=== PATIENT | female | born 1960 | race Two or more races ===

== ENCOUNTER 2021-11-15 13:33 | Outpatient (REF) | payer MEDICARE, SELFPAY ==
--- NOTE | ~2021-11-15 | MM_ITS ---
EXAMINATION: BONE DENSITOMETRY CLINICAL INDICATION: Osteoporosis. COMPARISON: None (current study represents initial baseline exam). TECHNIQUE: Using a [employer] DXA System (software version: 13.1) manufactured by [employer], dual-energy x-ray absorptiometry was performed of the lumbar spine and left hip. The images are of good technical quality. Summary results are attached. FINDINGS: AP SPINE L1-L4: BMD 0.894 g/cm2, Z-score -1.0, T-score -2.4, osteopenia. LEFT FEMUR, NECK: BMD 0.816 g/cm2, Z-score -0.2, T-score -1.6, osteopenia. LEFT FEMUR, TOTAL: BMD 0.793 g/cm2, Z-score -0.6, T-score -1.7, osteopenia. IDENTIFIED RISK FACTORS: Osteoporosis, menopause. HISTORY OF FRACTURE: None listed. MEDICATIONS: Calcium supplements or multivitamin, vitamin D. MM/XR DEXA axial skeleton IMPRESSION: 1. DIAGNOSIS: Osteopenia based on the lowest T-score value of -2.4 in the lumbar spine applying World Health Organization criteria. 2. 10-YEAR FRACTURE RISK PREDICTION, FRAX: Major osteoporotic fracture (clinical spine, forearm, hip or shoulder) 5.0%. Hip fracture 0.5%. 3. Treatment Recommendations: NOF guidelines recommend consideration for treatment in postmenopausal women and men age 50 and older presenting with the following: -A hip or vertebral (clinical or morphometric) fracture. -T-score less than or equal to -2.5 at the femoral neck or spine after appropriate evaluation to exclude secondary causes. -Low bone mass at the hip or spine and a 10-year fracture probability by FRAX of greater than or equal to 3% for hip fracture or greater than or equal to 20% for major osteoporotic fracture based on the [place] adapted WHO algorithm. 4. Other Recommendations: All treatment decisions require clinical judgment and consideration of individual patient factors, including patient preferences, comorbidities, previous drug use, risk factors not captured in the FRAX model (e.g. frailty, falls, vitamin D deficiency, increased bone turnover, interval significant decline in bone density) and possible under or overestimation of fracture risk by FRAX. Additional medical evaluation for secondary cause of low bone mineral density may be appropriate. FUTURE SCAN RECOMMENDATION: People with diagnosed cases of osteoporosis or at high risk for fracture should have regular bone mineral density tests. For patients eligible for Medicare, routine testing is allowed once every 2 years. The testing frequency can be increased to one year for patients who have rapidly progressing disease, those who are receiving or discontinuing medical therapy to restore bone mass, or have additional risk factors.
== END 2021-11-15 13:34 | disposition home or self-care (01) ==
LOC: HO.MAMMO 13:33
PROVIDERS: PCP Internal Medicine; Visit Provider Internal Medicine
DX: Z13.820 Encounter for screening for osteoporosis (principal); M81.0 Age-related osteoporosis without current pathological fracture; Z78.0 Asymptomatic menopausal state
CPT/HCPCS: 77080

== ENCOUNTER 2023-05-22 09:32 | Outpatient (REF) | payer MEDICARE, SELFPAY ==
[2023-05-22 15:24] LABS: Alanine Aminotransferase 20 U/L (0-31); Albumin Level 4.1 g/dL (3.5-5.0); Alkaline Phosphatase 75 U/L (39-117); Aspartate Amino Transferase 20 U/L (5-31); Bilirubin Direct 0.2 mg/dL (0.0-0.5); Bilirubin Total 0.6 mg/dL (0.0-1.0); Cholesterol 198 mg/dL (<200); HDL Cholesterol 70 mg/dL (>40); LDL Cholesterol Calculated 108 mg/dL (<100); Total Protein 7.1 g/dL (6.5-8.0); Triglycerides 102 mg/dL (<150)
[2023-05-22 15:42] LABS: TSH reflex Free T4 2.14 uIU/mL (0.32-4.0)
== END 2023-05-22 09:33 | disposition home or self-care (01) ==
LOC: HO.CHCLDS 09:32
PROVIDERS: Visit Provider Internal Medicine
DX: E03.9 Hypothyroidism, unspecified (principal); E78.2 Mixed hyperlipidemia
CPT/HCPCS: 36415; 80061; 80076; 84443

== ENCOUNTER 2023-11-06 10:03 | Outpatient (REF) | payer MEDICARE, SELFPAY ==
[2023-11-06 14:14] LABS: MANUAL DIFF FLAG NO
[2023-11-06 14:26] LABS: Basophils Percent Auto 0.5 % (0-2); Eosinophils Percent Auto 0.8 % (0-4); Hematocrit 37.6 % (37.0-47.0); Hemoglobin 11.9 g/dl (12.0-16.0); Imm Gran Abs Auto 0.02 X10*3/uL (0.00-0.03); Imm Gran Pct Auto 0.5 % (0.0-0.4); Lymphocytes Absolute Auto 1.6 X10*3/uL (1.2-4.9); Lymphocytes Percent Auto 41.5 % (20-40); Mean Corpuscular HGB Conc 31.6 g/dl (31.0-35.0); Mean Corpuscular Hemoglobin 28.5 pg (27.0-33.0); Mean Corpuscular Volume 90.2 fL (80.0-98.0); Mean Platelet Volume 10.5 fL (9.4-12.3); Monocytes Absolute Auto 0.4 X10*3/uL (0.1-1.2); Neutrophils Absolute Auto 1.7 x10*3/uL (2.0-8.3); Neutrophils Percent Auto 45.7 % (45-73); Platelet Count 220 X10*3/uL (160-400); Red Blood Count 4.17 X10*6/uL (4.20-5.50); Red Cell Distribution Width 13.5 % (11.0-16.0); White Blood Count 3.8 X10*3/uL (4.8-10.8)
[2023-11-06 15:12] LABS: Alanine Aminotransferase 21 U/L (0-31); Albumin Level 4.3 g/dL (3.5-5.0); Alkaline Phosphatase 69 U/L (39-117); Anion Gap 12 (12-20); Aspartate Amino Transferase 19 U/L (5-31); Bilirubin Total 0.6 mg/dL (0.0-1.0); Blood Urea Nitrogen 10 mg/dL (9-16); Calcium 9.8 mg/dL (8.4-10.2); Carbon Dioxide 26 mmol/L (22-29); Chloride 105 mmol/L (96-108); Cholesterol 212 mg/dL (<200); Estimated Glomerular Filt Rate > 60; Glucose Random 92 mg/dL (60-115); HDL Cholesterol 81 mg/dL (>40); LDL Cholesterol Calculated 108 mg/dL (<100); Potassium 4.3 mmol/L (3.3-5.1); Sodium 139 mmol/L (135-145); Total Protein 7.7 g/dL (6.5-8.0); Triglycerides 116 mg/dL (<150)
[2023-11-06 15:26] LABS: TSH reflex Free T4 0.78 uIU/mL (0.32-4.0)
== END 2023-11-06 10:04 | disposition home or self-care (01) ==
LOC: HO.CHCLDS 10:03
PROVIDERS: Visit Provider Internal Medicine
DX: E03.9 Hypothyroidism, unspecified (principal); E78.2 Mixed hyperlipidemia
CPT/HCPCS: 36415; 80053; 80061; 84443; 85025

== ENCOUNTER 2023-11-20 09:39 | Outpatient (REF) | payer MEDICARE, SELFPAY ==
--- NOTE | ~2023-11-20 | MM_ITS ---
EXAMINATION: BONE DENSITOMETRY CLINICAL INDICATION: Menopause. COMPARISON: Baseline BD dated 11/15/2021. TECHNIQUE: Using a [employer] DXA System (software version: 13.1) manufactured by [employer] dual-energy x-ray absorptiometry was performed of the lumbar spine and left hip. The images are of good technical quality. Summary results are attached. FINDINGS: LEFT FEMUR, NECK: Current: BMD 0.778 g/cm2, Z-score -0.5, T-score -1.9, osteopenia. Baseline: BMD 0.816 g/cm2. LEFT FEMUR, TOTAL: Current: BMD 0.790 g/cm2, Z-score -0.6, T-score -1.7, osteopenia, 0.4% decrease from baseline (<5% change is not significant). Baseline: BMD 0.793 g/cm2. AP SPINE L1-L4: Current: BMD 0.920 g/cm2, Z-score -0.7, T-score -2.2, osteopenia, 2.9% increase from baseline (<5% change is not significant). Baseline: BMD 0.894 g/cm2. IDENTIFIED RISK FACTORS: Menopause, height loss, osteoporosis, right oophorectomy. HISTORY OF FRACTURE: None listed. MEDICATIONS: Calcium, vitamin D. MM/XR DEXA axial skeleton IMPRESSION: 1. DIAGNOSIS: Osteopenia based on the lowest T-score value of -2.2 in the lumbar spine applying World Health Organization criteria. 2. 10-YEAR FRACTURE RISK PREDICTION, FRAX: Major osteoporotic fracture (clinical spine, forearm, hip or shoulder) 5.7%. Hip fracture 0.8%. 3. Treatment Recommendations: NOF guidelines recommend consideration for treatment in postmenopausal women and men age 50 and older presenting with the following: -A hip or vertebral (clinical or morphometric) fracture. -T-score less than or equal to -2.5 at the femoral neck or spine after appropriate evaluation to exclude secondary causes. -Low bone mass at the hip or spine and a 10-year fracture probability by FRAX of greater than or equal to 3% for hip fracture or greater than or equal to 20% for major osteoporotic fracture based on the [place] adapted WHO algorithm. 4. Other Recommendations: All treatment decisions require clinical judgment and consideration of individual patient factors, including patient preferences, comorbidities, previous drug use, risk factors not captured in the FRAX model (e.g. frailty, falls, vitamin D deficiency, increased bone turnover, interval significant decline in bone density) and possible under or overestimation of fracture risk by FRAX. Additional medical evaluation for secondary cause of low bone mineral density may be appropriate. FUTURE SCAN RECOMMENDATION: People with diagnosed cases of osteoporosis or at high risk for fracture should have regular bone mineral density tests. For patients eligible for Medicare, routine testing is allowed once every 2 years. The testing frequency can be increased to one year for patients who have rapidly progressing disease, those who are receiving or discontinuing medical therapy to restore bone mass, or have additional risk factors.
== END 2023-11-20 09:40 | disposition home or self-care (01) ==
LOC: HO.MAMMO 09:39
PROVIDERS: PCP Internal Medicine; Visit Provider Internal Medicine
DX: Z13.820 Encounter for screening for osteoporosis (principal); Z78.0 Asymptomatic menopausal state
CPT/HCPCS: 77080

== ENCOUNTER 2024-04-29 15:04 | Outpatient (REF) | payer MEDICARE, SELFPAY ==
[2024-04-29 18:11] LABS: Appearance Urine Clear; Color Urine Yellow; Glucose Urine UA Negative (Negative); Leukocyte Esterase Urine Negative (Negative); Nitrite Urine Negative (Negative); UMIC TRIGGER UACC YES; Urine Blood Small (1+) (Negative); Urine Ketones Negative (Negative); Urine Protein Negative (Neg-Trace)
[2024-04-29 18:49] LABS: Bacteria Urine None Seen (None Seen); Hyaline Casts Urine 0-2 /LPF (0-2); RBC Urine 0-2 /HPF (0-2); Squamous Epithelial Cell Urine 0-2 /HPF (0-2); WBC Urine 0-5 /HPF (0-5)
== END 2024-04-29 15:05 | disposition home or self-care (01) ==
LOC: HO.CHCLDS 15:04
PROVIDERS: Visit Provider Internal Medicine
DX: R31.9 Hematuria, unspecified (principal); R35.0 Frequency of micturition
CPT/HCPCS: 81001; 87086

== ENCOUNTER 2024-05-06 15:31 | Outpatient (REF) | payer MEDICARE, SELFPAY ==
[2024-05-06 18:00] LABS: Appearance Urine Clear; Color Urine Yellow; Glucose Urine UA Negative (Negative); Leukocyte Esterase Urine Negative (Negative); Nitrite Urine Negative (Negative); Specific Gravity - Urine 1.015 (1.005-1.025); UMIC TRIGGER UA YES; Urine Blood Moderate (2+) (Negative); Urine Ketones Negative (Negative); Urine Protein Negative (Neg-Trace)
[2024-05-06 18:17] LABS: Bacteria Urine None Seen (None Seen); Hyaline Casts Urine 0-2 /LPF (0-2); Squamous Epithelial Cell Urine 0-2 /HPF (0-2); WBC Urine 0-5 /HPF (0-5)
== END 2024-05-06 15:32 | disposition home or self-care (01) ==
LOC: HO.CHCLDS 15:31
PROVIDERS: Visit Provider Internal Medicine
DX: R31.9 Hematuria, unspecified (principal)
CPT/HCPCS: 81001

== ENCOUNTER 2024-05-27 14:26 | Outpatient (REF) | payer MEDICARE, SELFPAY ==
--- NOTE | ~2024-05-27 | US_ITS ---
EXAMINATION: US RETROPERITONEAL LIMITED (RENAL ONLY) CLINICAL INFORMATION: Hematuria.. COMPARISON: None available. TECHNIQUE: Real-time imaging of the kidneys. FINDINGS: RIGHT KIDNEY: 10.0 x 4.1 x 4.6 cm (SAG x AP x TRV). The kidney is normal in size, contour, and echogenicity. Renal cortical thickness is normal. No calculi or focal parenchymal lesions. No hydronephrosis. LEFT KIDNEY: 9.9 x 5.8 x 4.5 cm (SAG x AP x TRV). The kidney is normal in size, contour, and echogenicity. Renal cortical thickness is normal. No calculi or focal parenchymal lesions. No hydronephrosis. Small echogenic stone in the upper pole measuring 3 mm US/US renal BI IMPRESSION: Small nonobstructing stone in the upper pole of the left kidney. Electronically signed by: Manav Glass MD 05/27/2024 07:46 PM EST
== END 2024-05-27 14:27 | disposition home or self-care (01) ==
LOC: HO.US 14:26
PROVIDERS: PCP Internal Medicine; Visit Provider Internal Medicine
DX: R31.9 Hematuria, unspecified (principal)
CPT/HCPCS: 76775

== ENCOUNTER 2024-05-28 10:22 | Outpatient (REF) | payer MEDICARE, SELFPAY ==
[2024-05-28 14:47] LABS: Alanine Aminotransferase 17 U/L (0-31); Alkaline Phosphatase 66 U/L (39-117); Anion Gap 14 (12-20); Aspartate Amino Transferase 20 U/L (5-31); Bilirubin Total 0.6 mg/dL (0.0-1.0); Blood Urea Nitrogen 13 mg/dL (9-16); Calcium 9.1 mg/dL (8.4-10.2); Carbon Dioxide 25 mmol/L (22-29); Chloride 105 mmol/L (96-108); Cholesterol 206 mg/dL (<200); Estimated Glomerular Filt Rate > 60; Glucose Random 101 mg/dL (60-115); HDL Cholesterol 76 mg/dL (>40); LDL Cholesterol Calculated 104 mg/dL (<100); Potassium 3.9 mmol/L (3.3-5.1); Sodium 140 mmol/L (135-145); Total Protein 6.9 g/dL (6.5-8.0); Triglycerides 130 mg/dL (<150)
== END 2024-05-28 10:23 | disposition home or self-care (01) ==
LOC: HO.CHCLDS 10:22
PROVIDERS: Visit Provider Internal Medicine
DX: E78.2 Mixed hyperlipidemia (principal)
CPT/HCPCS: 36415; 80053; 80061

== ENCOUNTER 2024-06-06 14:24 | Outpatient (REF) | payer MEDICARE, SELFPAY ==
[2024-06-06 17:52] LABS: Appearance Urine Clear; Color Urine Yellow; Glucose Urine UA Negative (Negative); Leukocyte Esterase Urine Negative (Negative); Nitrite Urine Negative (Negative); PH 5.5 (5.0-9.0); Specific Gravity - Urine 1.015 (1.005-1.025); UMIC TRIGGER UA YES; Urine Blood Moderate (2+) (Negative); Urine Ketones Negative (Negative); Urine Protein Negative (Neg-Trace)
[2024-06-06 18:03] LABS: Bacteria Urine None Seen (None Seen); Hyaline Casts Urine 0-2 /LPF (0-2); RBC Urine 0-2 /HPF (0-2); Squamous Epithelial Cell Urine 0-2 /HPF (0-2); WBC Urine 0-5 /HPF (0-5)
--- OUTSIDE RECORDS SUMMARY | 2024-06-11 10:19 | XMS_ITS | Continuity of Care Document ---
Author Organization [facility] Address [address] [place] [address] Phone Care Team Providers Care Milk Tanker Driver Name Role Phone Willie Moore MD Unavailable Unavailable Allergies, Adverse Reactions, Alerts Substance Reaction Status Criticality No Known Allergies Active No Inform ation Problems Condition Type Effective Dates (start - stop) Clini nini Status Comments No Known Problems Procedures Procedure Date Consult, Level III / Office Advance Directives Directive Yes / No Effective Date File Name No Information Encounters Encounter Description Practice Location Reason(s) For Visit Diagnoses Date Provider Providers Copied on Encounter [facility], [address], [place], [place], [id number], tel:[phone] [facility] No Information [address] Teresa Tapia. [address], [id number] , [place]. tel: [phone] Consult, Level III / Office [facility], [address], [place], [place], [id number], tel:[phone] [facility] allergy evaluation (chief complaint) Insect bite, subsequent encounterAllergic reaction, subsequent encounter [address], [facility] [address], [place], [id number] , [place]. tel: [phone] Referring Provider: Venice Chavarria [address], [address]. tel:[phone] Family History Family Member Type Diagnosis Age At Onset Mother Problem (finding) hypertension Father Problem (finding) asthma Mother Problem (finding) diabetes melli tus in first degree relative Mother Problem (finding) asthma Payers Payer name Insurance type Covered constitution party ID Authoriza tion(s) No Information Social History Type Description Quantity Date Captured Comments Sex Female Smoking Status No Information Chief Complaint And Reason For Visit No Information Reason For Referral Reason For Referral No Information History Of Present Illness Encounter Date Complaint History Of Prese nt Illness allergy evaluation 57 year old w [place], French speaking, hx obtained with pipe buffer phone service, referred for allergy evaluation with history of very large local reactions to bites. She showed me several photos of bites over the past few years, 2011, 2014, 2016. She thinks she was bitten by mosquito, spiders. Some of the reactions were so severe with erythema and blistering there was concern for cellulitis. She does not suspect she has ever been bitten by a wasp, bee, or yellow jacket. These reactions have never been associated with food or medication and she has never had a systemic reaction. Functional Status Date Functional Assessmen t No Information Instructions Date Instruction Additional Infor ruth ann Bloodwork sent for Rupa Alexandra to hymentoptera to see if she is at risk for systemic reaction (unlikely, based on history), and tryptase level to screen for mast cell disordersIf reaction recurs, it would likely need to be treated with oral steroids as these tend to not respond well to antihistamines Related to Allergic reaction, subsequent encounter Assessments Type Assessment Date No Information Patient Care Teams Name Effective Dates (start - stop) Status Members No Information
== END 2024-06-06 14:25 | disposition home or self-care (01) ==
LOC: HO.CHCLDS 14:24
PROVIDERS: Visit Provider Internal Medicine
DX: R31.21 Asymptomatic microscopic hematuria (principal)
CPT/HCPCS: 81001

== ENCOUNTER 2024-12-02 10:00 | Outpatient (REF) | payer MEDICARE, SELFPAY ==
--- OUTSIDE RECORDS SUMMARY | 2024-12-02 11:28 | XMS_ITS | Encounter Summary ---
Author Organization [employer] Address [address] [place] [address] Care Team Providers Care Acid Etch Operator Name Role Phone Gael Everett MD Primary Care Prov ider Reason for Visit * Reason Onset Date Comments Results 04/17/2024 Encounter Details Date Type Department Care Team ([facility] st Contact Info) Description 04/17/2024 Telephone [facility] CHC MED & PEDS [address] [place], [place] [phone] Gael Everett MD [address] [place] [address] Results Social History Tobacco Use Types Packs/Day Years Used Date Smoking Tobacco: Never Smokeless Tobacco: Never Depression Answer Date Recorded Patient Health Questionnaire-9 Score 0 10/17/2022 Housing Stability Answer Date Recorded What is your housing situation today? I have paige carr 10/30/[address] you li ve. Do you have problems with any of the following? None of the above 10/30/2023 Food Insecurity Answer Date Recorded Within the past 12 months, y ou worried that your food would run out before you got money to buy more: Never True 10/30/2023 Within the past 12 months,th e food you bought just didn't last and you didn't have enough money to get more: Never True Transportation Answer Date Recorded In the past 12 months, has l ack of transportation kept you from medical appts, meetings, work or from getting things needed for daily living? No 10/30/2023 Utilities Answer Date Recorded In the past 12 months, has t he electric, gas, oil or water company threatened to shut off services in your home? No 10/30/2023 Depression Answer Date Recorded Patient Health Questionnaire-2 Score 0 10/17/2022 Comments Unknown Sex and Gender Information Value Date Recorded Sex Assigned at Female 05/01/2022 10:37 AM EDT Legal Sex Female 10:37 AM EDT Gender Identity Female 05/01/2022 10:37 AM EDT Sexual Orientation Straight 05/01/2022 10 :37 AM EDT documented as of this encounter Miscellaneous Notes * Telephone Encounter - Maddie Weiss - 04/17/2024 3:55 PM EDT TC from pt requesting call back regarding Results. Type of results: Lab and Urine Date when done: 04/01/24 Facility: [facility] Contact pt at [phone] documented in this encounter Plan of Treatment Upcoming Encounters Date Type Department Care Team ([facility] st Contact Info) Description 12/10/2024 11:30 AM EDT Office Visit [facility] MED & PEDS [address] [place] [address] Gael Everett MD [address] [place] [address] documented as of this encounter Visit Diagnoses Not on filedocumented in this encounter Additional Health Concerns Assessment Noted Time PHQ-9 Depression Total Score: 0 10/18/19 23 11:00 AM EDT documented as of this encounter Care Teams Acid Etch Operator Relationship Specialty Start Date End Date Gael Everett MD [address] [place] [address] PCP - General Internal Medicine 10/16/19 documented as of this encounter
[2024-12-02 14:50] LABS: MANUAL DIFF FLAG NO
[2024-12-02 15:02] LABS: Basophils Percent Auto 0.4 % (0-2); Eosinophils Percent Auto 0.9 % (0-4); Hematocrit 34.4 % (37.0-47.0); Imm Gran Abs Auto 0.01 X10*3/uL (0.00-0.03); Imm Gran Pct Auto 0.2 % (0.0-0.4); Lymphocytes Absolute Auto 2.5 X10*3/uL (1.2-4.9); Lymphocytes Percent Auto 53.5 % (20-40); Mean Corpuscular Hemoglobin 28.6 pg (27.0-33.0); Mean Corpuscular Volume 89.6 fL (80.0-98.0); Mean Platelet Volume 10.7 fL (9.4-12.3); Monocytes Absolute Auto 0.4 X10*3/uL (0.1-1.2); Neutrophils Absolute Auto 1.7 x10*3/uL (2.0-8.3); Platelet Count 220 X10*3/uL (160-400); Red Blood Count 3.84 X10*6/uL (4.20-5.50); Red Cell Distribution Width 13.4 % (11.0-16.0); White Blood Count 4.7 X10*3/uL (4.8-10.8)
[2024-12-02 16:55] LABS: Alanine Aminotransferase 14 U/L (0-31); Albumin Level 3.9 g/dL (3.5-5.0); Anion Gap 10 (12-20); Aspartate Amino Transferase 21 U/L (5-31); Bilirubin Total 0.5 mg/dL (0.0-1.0); Blood Urea Nitrogen 13 mg/dL (9-16); Carbon Dioxide 26 mmol/L (22-29); Chloride 108 mmol/L (96-108); Cholesterol 192 mg/dL (<200); Estimated Glomerular Filt Rate > 60; Glucose Random 94 mg/dL (60-115); HDL Cholesterol 67 mg/dL (>40); LDL Cholesterol Calculated 110 mg/dL (<100); Potassium 4.6 mmol/L (3.3-5.1); Sodium 139 mmol/L (135-145); Total Protein 6.5 g/dL (6.5-8.0); Triglycerides 79 mg/dL (<150)
[2024-12-02 17:13] LABS: Alkaline Phosphatase 74 U/L (39-117); TSH reflex Free T4 1.91 uIU/mL (0.32-4.0)
== END 2024-12-02 10:01 | disposition home or self-care (01) ==
LOC: HO.CHCLDS 10:00
PROVIDERS: Visit Provider Internal Medicine
DX: E03.9 Hypothyroidism, unspecified (principal)
CPT/HCPCS: 36415; 80053; 80061; 84443; 85025

== ENCOUNTER 2024-12-10 12:31 | Outpatient (REF) | payer MEDICARE, SELFPAY ==
--- OUTSIDE RECORDS SUMMARY | 2024-12-10 14:00 | XMS_ITS | Encounter Summary ---
Author Organization [employer] Address [address] [facility] 7 [place] [address] Care Team Providers Care Backhaul Driver Name Role Phone Gael Everett MD Primary Care Prov ider Reason for Visit * Reason Onset Date Comments Results 04/17/2024 Encounter Details Date Type Department Care Team ([facility] Contact Info) Description 04/17/2024 Telephone [facility] CHC MED & PEDS [address] [place], [place] [phone] Gael Everett MD [address] [place] [address] Results Social History Tobacco Use Types Packs/Day Years Used Date Smoking Tobacco: Never Smokeless Tobacco: Never Depression Answer Date Recorded Patient Health Questionnaire-9 Score 0 10/17/2022 Housing Stability Answer Date Recorded What is your housing situation today? I have paige lilly 10/30/[address] you li [...] and Urine Date when done: 04/01/24 Facility: [facility] Contact pt at [phone] documented in this encounter Plan of Treatment Not on file documented as of this encounter Visit Diagnoses Not on filedocumented in this encounter Additional Health Concerns Assessment Noted Time PHQ-9 Depression Total Score: 0 10/18/19 23 11:00 AM EDT documented as of this encounter Care Teams Backhaul Driver Relationship Specialty Start Date End Date Gael Everett MD [address] [place] [address] PCP - General Internal Medicine 10/16/19 documented as of this encounter
[2024-12-10 15:04] LABS: Iron 80 mcg/dL (30-160); Percent Iron Saturation 27 % (15-50); Total Iron Binding Capacity 300 mcg/dL (228-428); Unsaturated Iron Binding 220 ug/dL
[2024-12-10 15:09] LABS: Vitamin D 25-OH Total 30.3 ng/mL (>30)
[2024-12-10 15:27] LABS: Folate 8.7 ng/mL (> or = 4.0); Vitamin B12 439 pg/mL (200-900)
== END 2024-12-10 12:32 | disposition home or self-care (01) ==
LOC: HO.CHCLDS 12:31
PROVIDERS: Visit Provider Internal Medicine
DX: E55.9 Vitamin D deficiency, unspecified (principal); D64.9 Anemia, unspecified
CPT/HCPCS: 36415; 82306; 82607; 82746; 83540

== ENCOUNTER 2024-12-11 14:12 | Outpatient (REF) | payer MEDICARE, SELFPAY ==
[2024-12-11 14:17] LABS: Appearance Urine Clear; Color Urine Yellow; Glucose Urine UA Negative (Negative); Leukocyte Esterase Urine Negative (Negative); Nitrite Urine Negative (Negative); PH 5.5 (5.0-9.0); UMIC TRIGGER UACC YES; Urine Blood Trace (Negative); Urine Cytology See Pathology rpt; Urine Ketones Negative (Negative); Urine Protein Negative (Neg-Trace)
[2024-12-11 14:20] LABS: Bacteria Urine None Seen (None Seen); Hyaline Casts Urine 0-2 /LPF (0-2); RBC Urine 0-2 /HPF (0-2); Squamous Epithelial Cell Urine 0-2 /HPF (0-2); WBC Urine 0-5 /HPF (0-5)
--- OUTSIDE RECORDS SUMMARY | 2024-12-11 16:46 | XMS_ITS | Encounter Summary ---
Author Organization [employer] Address [address] [facility] [address] [place] [address] Care Team Providers Care White Hat Hacker Name Role Phone Gael Everett MD Primary Care Prov ider Reason for Visit * Reason Onset Date Comments Results 04/17/2024 Encounter Details Date Type Department Care Team ([facility] Contact Info) Description 04/17/2024 Telephone [facility] CHC MED & PEDS [address] [place], [place] [phone] Gael Everett MD [address] [place] [address] Results Social History Tobacco Use Types Packs/Day [...] and Urine Date when done: 04/01/24 Facility: [facility] Contact pt at [phone] documented in this encounter Plan of Treatment Not on file documented as of this encounter Visit Diagnoses Not on filedocumented in this encounter Additional Health Concerns Assessment Noted Time PHQ-9 Depression Total Score: 0 10/18/19 23 11:00 AM EDT documented as of this encounter Care Teams White Hat Hacker Relationship Specialty Start Date End Date Gael Everett MD [address] [place] [address] PCP - General Internal Medicine 10/16/19 documented as of this encounter
== END 2024-12-11 14:13 | disposition home or self-care (01) ==
LOC: HO.HHCLNP 14:12
PROVIDERS: Visit Provider Internal Medicine
DX: R31.21 Asymptomatic microscopic hematuria (principal)
CPT/HCPCS: 81001; 88112

== ENCOUNTER 2025-06-02 09:42 | Outpatient (REF) | payer MEDICARE, SELFPAY ==
--- OUTSIDE RECORDS SUMMARY | 2025-06-01 09:30 | XMS_ITS | Encounter Summary ---
Author Organization [employer] Address [address] [place] [address] [address] [address] Care Team Providers Care Cemetery Workers Supervisor Name Role Phone Gael Everett MD Primary Care Prov ider Reason for Referral * Consultation (Routine) - Closed Specialty Diagnoses / Procedures Referred By Contac t Referred To Contact Obstetrics and Gynecology Diagnoses Hx of abnormal cervical Pap smear Gael Everett MD [address] [place] [address] Phone: tel: fax: [address] Phone: tel: fax: Referral ID Status Reason Start Date Expiration Date V isits Requested Visits Authorized [id number] Closed Specialty Services Required 06/01/2025 06/01/2026 1 1 Encounter Details Date Type Department Care Team (Latest Contact Info) Description 06/01/2025 9:30 AM EST Telemedicine [facility] CHC MED & PEDS [address] [place], [place] [phone] Gael Everett MD [address] [place], [place] [phone] Acquired hypothyroidism (Primary Dx); Mixed hyperlipidemia; Other vitamin B12 deficiency anemia; Hx of abnormal cervical Pap smear Social History Tobacco Use Types Packs/Day Years Used Date Smoking Tobacco: Never Smokeless Tobacco: Never Depression Answer Date Recorded Patient Health Questionnaire-9 Score 0 12/10/2024 Patient Health Questionnaire-9 Score 0 12/10/2024 Last PHQ-9: Questionnaire Data Not on file 0 12/10/2024 Housing Stability Answer Date Recorded What is your housing situation today? I have paige carr 12/10/[address] you li ve. Do you have problems with any of the following? None of the above 12/10/2024 Food Insecurity Answer Date Recorded Within the past 12 months, y ou worried that your food would run out before you got money to buy more: Never True 12/10/2024 Within the past 12 months,th e food you bought just didn't last and you didn't have enough money to get more: Never True 05/2025 Transportation Answer Date Recorded In the past 12 months, has l ack of transportation kept you from medical appts, meetings, work or from getting things needed for daily living? No 12/10/2024 Utilities Answer Date Recorded In the past 12 months, has t he electric, gas, oil or water company threatened to shut off services in your home? No 12/10/2024 Depression Answer Date Recorded Patient Health Questionnaire-2 Score 0 12/10/2024 Internet Access Answer Date Recorded Internet Access Q1 Yes 12/10/2024 Internet Access Q2 Not on file 12/10/2024 Comments Unknown Sex and Gender Information Value Date Recorded Sex Assigned at Female 05/01/2022 10:37 AM EDT Legal Sex Female 10:37 AM EDT Gender Identity Female 05/01/2022 10:37 AM EDT Sexual Orientation Straight 05/01/2022 10 :37 AM EDT documented as of this encounter Progress Notes * Gael Salazar MD - 06/01/2025 9:30 AM EST Subjective Patient ID: Pam Torres is a 65 y.o. female who presents for No chief complaint on file.. Thyroid Problem Presents for follow-up visit. Patient reports no depressed mood, palpitations, weight gain or weight loss. Review of Systems Constitutional: Negative for weight gain and weight loss. Cardiovascular: Negative for palpitations. Objective Physical Exam Neurological: General: No focal deficit present. Mental Status: She is oriented to person, place, and time. Psychiatric: Mood and Affect: Mood normal. Behavior: Behavior normal. Assessment/Plan Problem List Items Addressed This Visit Acquired hypothyroidism - Primary Clinically euthyroid, new labs will be ordered for guidance Relevant Orders TSH W/Reflex to FT4 Mixed hyperlipidemia On atorvastatin, will order new labs for guidance of therapy Relevant Orders CBC auto differential Comprehensive Metabolic Panel Lipid Panel, Standard Anemia Will order blood test for evaluation Relevant Orders Vitamin D, 25-Hydroxy, Total, Immunoassay Iron And Total Iron Binding Capacity Vitamin B12 (Cobalamin) and Folate Panel, Serum Hx of abnormal cervical Pap smear Followed by eric satellite dish repairer, will place referral Relevant Orders Referral to Obstetrics / Gynecology documented in this encounter Miscellaneous Notes * Assessment & Plan Note - Gael Salazar MD - 06/01/2025 9:53 AM ESTAssociated Problem(s): Anemia Will order blood test for evaluation * Assessment & Plan Note - Gael Salazar MD - 06/01/2025 9:52 AM ESTAssociated Problem(s): Hx of abnormal cervical Pap smear Followed by eric satellite dish repairer, will place referral * Assessment & Plan Note - Gael Salazar MD - 06/01/2025 9:52 AM ESTAssociated Problem(s): Acquired hypothyroidism Clinically euthyroid, new labs will be ordered for guidance * Assessment & Plan Note - Gael Salazar MD - 06/01/2025 9:51 AM ESTAssociated Problem(s): Mixed hyperlipidemia On atorvastatin, will order new labs for guidance of therapy documented in this encounter Plan of Treatment Scheduled Orders Name Type Priority Associated Diagnoses Orde r Schedule CBC auto differential Lab Routine Mixed hyperlipidemia Expected: 06/01/2025 (Approximate), Expires: 06/01/2026 Comprehensive Metabolic Panel Lab Routine Mixed hyperlipidemia Expected: 06/01/2025 (Approximate), Expires: 06/01/2026 TSH W/Reflex to FT4 Lab Routine Acquired hypothyroidism Expected: 06/01/2025 (Approximate), Expires: 06/01/2026 Lipid Panel, Standard Lab Routine Mixed hyperlipidemia Expected: 06/01/2025 (Approximate), Expires: 06/01/2026 Vitamin D, 25-Hydroxy, Total, Immunoassay Lab Routine Other vitamin B12 deficiency anemia Expected: 06/01/2025 (Approximate), Expires: 06/01/2026 Iron And Total Iron Binding Capacity Lab Routine Other vitamin B12 deficiency anemia Expected: 06/01/2025, Expires: 06/01/2026 Vitamin B12 (Cobalamin) and Folate Panel, Serum Lab Routine Other vitamin B12 deficiency anemia Expected: 06/01/2025 (Approximate), Expires: 06/01/2026 Scheduled Referrals Name Type Priority Associated Diagnoses Order Schedule Referral to Obstetrics / Gynecology Outpatient Referral Routine Hx of abnormal cervical Pap smear Expected: 06/01/2025 (Approximate), Expires: 06/01/2026 documented as of this encounter Visit Diagnoses Diagnosis Acquired hypothyroidism- Primary Unspecified hypothyroidism Mixed hyperlipidemia Other vitamin B12 deficiency anemia Hx of abnormal cervical Pap smear documented in this encounter Additional Health Concerns Assessment Noted Time PHQ-9 Depression Total Score: 0 12/11/19 25 12:00 PM EDT documented as of this encounter Care Teams Cemetery Workers Supervisor Relationship Specialty Start Date End Date Gael Everett MD [address] [place] [address] PCP - General Internal Medicine 10/16/19 documented as of this encounter
--- OUTSIDE RECORDS SUMMARY | 2025-06-02 10:41 | XMS_ITS | Encounter Summary ---
Author Organization [employer] Address [address] [place] [address] Care Team Providers Care Product Coordinator Name Role Phone Gael Everett MD Primary Care Prov ider Encounter Details Date Type Department Care Team (Latest Contact Info) Description 06/01/2025 Travel Social History Tobacco Use Types Packs/Day Years [...] AM EDT documented as of this encounter Plan of Treatment Not on file documented as of this encounter Visit Diagnoses Not on filedocumented in this encounter Additional Health Concerns Assessment Noted Time PHQ-9 Depression Total Score: 0 12/11/19 25 12:00 PM EDT documented as of this encounter Care Teams Product Coordinator Relationship Specialty Start Date End Date Gael Everett MD [address] [place] [address] PCP - General Internal Medicine 10/16/19 documented as of this encounter
--- OUTSIDE RECORDS SUMMARY | 2025-06-02 10:41 | XMS_ITS | Clinical Summary ---
Author Organization [email or web address] Address [address] [place] [address] [facility] [place] [address] Care Team Providers Care Advanced Manufacturing Consultant Name Role Phone Gael Everett MD Primary Care Prov ider Allergies Active Allergy Reactions Criticality Noted Date Comments Azithromycin Rash Low 09/04/2022 Ciprofloxacin 10/20/2021 Iodine Hives 10/20/2021 Meclizine 09/04/2022 Other reaction(s): hives,rash Metronidazole Hives 10/20/2021 Nitrofurantoin 10/20/2021 Other reaction(s): hives,rash Oxycodone Hcl 09/04/2022 Other reaction(s): hives,rash Prochlorperazine 10/20/2021 Other reaction(s): hives,rash Sulfa Antibiotics Hives 09/04/2022 Sulfamethoxazole 10/20/2021 Sulfamethoxazole-Trimethoprim 2022 Other reaction(s): hives,rash Tetracycline 10/20/2021 Tetracyclines & Related 09/04/2022 Trimethoprim 10/20/2021 Medications carbamide peroxide (Debrox) 6.5 % otic solutionIndicati ons:Cerumen in auditory canal on examination Administer 5 drops into each ear every 12 (twelve) hours. 15 mL 09/05/19 23 Active cetirizine (ZyrTEC) 10 MG tablet Take 1 tablet (10 mg) by mouth in the morning. 90 tablet 3 10/18/19 23 Active Calcium Carb-Cholecalcif greg 600-10 MG-MCG tablet TAKE 1 TABLET BY MOUTH EVERY DAY IN THE MORNING 90 tablet 3 03/04/20 24 Active fluticasone (Flonase) 50 MCG/ACT nasal spray USE 1 TO 2 SPRAYS IN EACH NOSTRIL DAILY NEEDED 48 mL 1 05/06/20 24 Active levothyroxine (Synthroid, Levoxyl) 50 MCG tablet TAKE 1 TABLET BY MOUTH EVERY DAY 90 tablet 6 09/13/19 25 Active atorvastatin (Lipitor) 80 MG tablet TAKE 1 TABLET BY MOUTH EVERY MORNING 90 tablet 3 10/30/19 25 Active alendronate (Fosamax) 70 MG tabletIndication s:Age-related osteoporosis without current pathological fracture TAKE 1 TABLET BY MOUTH EVERY 7 DAYS. TAKE IN THE MORNING WITH A FULL GLASS OF WATER, ON AN EMPTY STOMACH AND DO NOT TAKE ANYTHING ELSE BY MOUTH OR LIE DOWN FOR THE NEXT 30 MINUTES. 12 tablet 3 05/07/20 25 Active alendronate (Fosamax) 70 MG tabletIndication s:Age-related osteoporosis without current pathological fracture TAKE 1 TABLET (70 MG) BY MOUTH EVERY 7 (SEVEN) DAYS. TAKE IN THE MORNING WITH A FULL GLASS OF WATER, ON AN EMPTY STOMACH, AND DO NOT TAKE ANYTHING ELSE BY MOUTH OR LIE DOWN FOR THE NEXT 30 MIN. 12 tablet 3 06/09/20 24 025 Discontinued Active Problems Problem Noted Date Diagnosed Date Hx of abnormal cervical Pap smear 06/01/2025 Assessment & Plan (06/01/2025 9:52 AM EST): Followed by [facility], will place referral Anemia 12/10/2024 Assessment & Plan (06/01/2025 9:53 AM EST): Will order blood test for evaluation Assessment & Plan (12/10/2024 12:40 PM EDT): Will order iron/vitamin b12 levels Asymptomatic microscopic hematuria 06/06/2024 Assessment & Plan (12/10/2024 12:37 PM EDT): Will order u/a and cytology, she is asymptomatic Assessment & Plan (06/06/2024 1:06 PM EST): U/s showed left kidney stone which could explain finding, will also order a urine cytology Chronic pain of left knee 11/06/2023 Assessment & Plan (11/06/2023 12:55 PM EDT): Told to avoid heavy liftinh, prolongued walking, apply cold pads, will rx voltaren, follow up as needed Colon cancer screening 01/24/2023 Assessment & Plan (01/24/2023 10:25 AM EDT): Patient had it done on 2016, study was normal to be repeated in 10 years Encounter for screening mamm ogram for malignant neoplasm of breast 01/24/2023 Assessment & Plan (05/28/2023 9:25 AM EST): Done on 04/2023. No results at chart. Patient has a copy of the results and report is normal. To be repeated in 1 year. Assessment & Plan (01/24/2023 10:25 AM EDT): Done on May 2022 to be repeated in 1 year Screening for cervical cancer 01/24/2023 Assessment & Plan (05/28/2023 9:27 AM EST): Pap smear done on 01/2023 and reported normal. To be repeated in 01/2024. Assessment & Plan (01/24/2023 10:26 AM EDT): Has scheduled appointment on january, with ob-basket mender, will follow up reccomendations Acquired hypothyroidism 10/17/2022 Assessment & Plan (06/01/2025 9:52 AM EST): Clinically euthyroid, new labs will be ordered for guidance Assessment & Plan (12/10/2024 12:40 PM EDT): Clinically and chemically euthyroid, no changes will be made, Assessment & Plan (06/06/2024 1:05 PM EST): Clinically euthyroid, no changes will be made, continue same treatment Assessment & Plan (02/27/2024 2:21 PM EDT): Clinically and chemically euthyroid, no changes will be made Assessment & Plan (11/06/2023 12:53 PM EDT): Clinically euthyroid, new tsh will be ordered for guidance of therapy Assessment & Plan (05/28/2023 9:23 AM EST): Clinically and chemically euthyroid. Laboratories from 05/2023 at 2.14. Will continue Levothyroxine 50mcg. Will follow up in 6 months. Assessment & Plan (01/24/2023 10:24 AM EDT): Clinically and chemically euthyroid, repeat labs in 4 months Assessment & Plan (10/17/2022 12:37 PM EDT): Controlled, no changes will be made, clinically and chemically euthyroid Mixed hyperlipidemia 10/17/2022 Assessment & Plan (06/01/2025 9:51 AM EST): On atorvastatin, will order new labs for guidance of therapy Assessment & Plan (12/10/2024 12:38 PM EDT): Continue atorvastatin, no side effects reported, continue diet/lifestyle modifications Assessment & Plan (06/06/2024 1:05 PM EST): On atorvastatin 80mg, no side effects reported, conitnue same treatment Assessment & Plan (02/27/2024 2:21 PM EDT): Tolerating current dose of statin, last labs were stable, continue low cholesterol diet and exercise as tolerated Assessment & Plan (11/06/2023 12:54 PM EDT): On atorvastatin 80mg, new labs will be ordered for guidance of therapy Assessment & Plan (05/28/2023 9:26 AM EST): Patient taking Atorvastatin 80mg. No reported side effects. Reviewed labs, AST/ALT within normal limits as well as cholesterol. Assessment & Plan (01/24/2023 10:23 AM EDT): Cholesterol/ldl improved after increase in atorvartatin, no side effects reported, will follow up in 4 months with new labs Assessment & Plan (10/17/2022 12:39 PM EDT): Uncontrolled, will increase dose to 80mg and will follow up in 2 months with new labs, discussed red flags/side effects to watch Age-related osteoporosis wit hout current pathological fracture 10/17/2022 Assessment & Plan (02/27/2024 2:20 PM EDT): Dexa scan done on 10/2023 showed osteopenia, she has been 5 years on alendronate treatment, wants to contine for now, will reevaluate in 2 years Assessment & Plan (10/17/2022 12:37 PM EDT): On alendronate, last dexa scan from 2021, she needs to be on therapy for 5-10 years currently on her 4th year, continue vitamin d and calcium supplement Encounters Date Type Department Care Team Description 06/01/2025 9:30 AM EST Telemedicine [facility] [address] [place] [address] Gael Everett MD Acquired hypothyroidism (Primary Dx); Mixed hyperlipidemia; Other vitamin B12 deficiency anemia; Hx of abnormal cervical Pap smear 06/01/2025 Travel 05/27/2025 Telephone [facility] [address] [place] [address] Gael Everett MD chart prep 05/21/2025 Telephone [facility] [address] [place] [phone] Gael Everett MD Lab Orders 05/21/2025 Telephone [facility] [address] [place] [phone] Gael Everett MD Referral 05/06/2025 Refill [facility] [address] [place] [address] Gael Everett MD Age-related osteoporosis without current pathological fracture 03/18/2025 Telephone [facility] [address], [place] [phone] Gael Everett MD chart prep 03/18/2025 Telephone [facility] [address], [place] [phone] Gael Everett MD 03/12/[address] [address] Gael Everett MD Lab Orders from Last 3 Months Immunizations Immunization Administration Dates Next Due Influenza Injectable Quadriv alant Preservative Free IIV4 MDCK 06/09/2021 Influenza injectable quadrivalent preservative f ree 03/13/2022,04/16/2018 Pfizer Covid-19 Vaccine 12+ 08/09/2021 Tdap 10/20/2021 Zoster, Recombinant 12/05/2022,09/05/2022 Social History Tobacco Use Types Packs/Day Years Used Date Smoking Tobacco: Never Smokeless Tobacco: Never Tobacco Cessation:Counseling Given: Not Answered Depression Answer Date Recorded Patient Health Questionnaire-9 [...] Orientation Straight 05/01/2022 10 :37 AM EDT Last Filed Vital Signs Vital Sign Reading Time Taken Comments Blood Pressure 131/83 12/10/2024 11:59 AM EDT Pulse 100 12/10/2024 11:59 AM EDT Temperature 36.9 C (98.4 F) 12/10/2024 11:59 AM EDT Respiratory Rate 20 12/10/2024 11:59 AM EDT Oxygen Saturation 92% 04/01/2024 3:57 PM EDT Inhaled Oxygen Concentration - - Weight 67.1 kg (148 lb) 12/10/2024 11:59 AM EDT Height 160 cm (5' 3 ) 12/10/2024 11:59 AM EDT Body Mass Index 26.22 12/10/2024 11:59 AM EDT Plan of Treatment Health Maintenance Due Date Last Done Comments CT Colonography 1959 FIT DNA/Cologuard 1959 FIT 1959 FOBT 1959 Sigmoidoscopy 1960 Pneumococcal Vaccine: 50+ Years (1 of 1 - PCV) 2009 COVID-19 Vaccine ( season) 2025 05/29/2023, 03/13/2022, 08/09/2021, Additional history exists Influenza Vaccine (#1) 2025 , 03/13/2022, 06/09/2021, Additional history exists Tobacco Screening 04/01/2025 04/01/2024 Mammogram 04/11/2025 11/15/2021 Alcohol/Substance Use Screening 12/10/2025 12/10/2024 Depression Screening 12/10/2025 12/10/2024, 12/11/19 25 SDOH Screening 12/10/2025 12/10/2024 Colonoscopy 11/16/2026 11/16/2016 Colorectal Cancer Screening 11/16/2026 DTaP/Tdap/Td Vaccines (2 - Td or Tdap) 10/21/2031 10/20/2021 Zoster Vaccines Completed 12/05/2022, 09/05/2022 Hepatitis C Screening Completed 12/22/2022, 022 RSV Patients and Patients Aged 60 years or older Completed 09/13/2023 HIB Vaccines Aged Out No longer eligi ble based on patient's age to complete this topic HPV Vaccines Aged Out No longer eligi ble based on patient's age to complete this topic Hepatitis A Vaccines Aged Out No long er eligible based on patient's age to complete this topic Hepatitis B Vaccines Aged Out No long er eligible based on patient's age to complete this topic IPV Vaccines Aged Out No longer eligi ble based on patient's age to complete this topic Meningococcal B Vaccine Aged Out No l onger eligible based on patient's age to complete this topic Meningococcal Vaccine Aged Out No shaun chanda eligible based on patient's age to complete this topic RSV under 20 months Aged Out No longe r eligible based on patient's age to complete this topic Rotavirus Vaccines Aged Out No longer eligible based on patient's age to complete this topic Procedures Procedure Name Priority Date/Time Associated Diagnosis Comments HEPATITIS C AB W/REFL TO HCV RNA, QN, PCR Routine 12/22/2022 9:19 AM EDT Mixed hyperlipidemia MAMMOGRAM GENERIC Routine 11/15/2021 2:1 5 PM EDT HM COLONOSCOPY Routine 11/16/2016 from Last 3 Months or Most Recently Relevant to Health Maintenance Results * Hepatitis C Antibody with Reflex to HCV, RNA, Quantitative, Real-Time PCR (12/22/2022 9:19 AM EDT) Hepatitis C Antibody NON-REACT YADI NON-REACT YADI [facility] Comment: HCV antibody was non-reactive. There is no laboratory evidence of HCV infection. In most cases, no further action is required. However, if recent HCV exposure is suspected, a test for HCV RNA (test code 81743) is suggested. For additional information please refer to http://education.Validus-IVC/faq/LYT94y8 (This link is being provided for informational/ educational purposes only.) Blood Venous blood specimen / Unknown 12/22/2022 9:19 AM EDT 12/22/2022 9:19 AM EDT Narrative [facility] - 12/23/2022 6:10 AM EDT FASTING:YES FASTING: YES Gael Salazar MD LAB BLOOD ORDERABL ES Final Result [facility] [address], [place] [address] [facility] [address] [place] [address] * Mammography Report 1 (11/15/2021 2:15 PM EDT) Anatomical Region Laterality Modality Breast Bilateral Mammography 11/15/2021 2:15 PM EDT Narrative 11/16/2021 12:18 PM EDT Refer to the Notes tab for result details [facility] Procedure: Mammography Report 1 Procedure Note Provider, MD Brit - 09/24/2022 Refer to the Notes tab for result details [facility] Procedure: Mammography Report 1 Gael Salazar MD IMG BI PROCEDURES Final Result * Colonoscopy (11/16/2016) Colonoscopy Normal Normal Narrative Nena Llanes - 11/16/2016 Colonoscopy order added Brit Provider HEALTH MAINTENANCE Final Result from Last 3 Months or Most Recently Relevant to Health Maintenance Insurance [facility] MEDICARE ADVANTAGE HMO [id number] [place] [address] [id number] [place] [address] [id number] [place] [address] Care Teams Advanced Manufacturing Consultant Relationship Specialty Start Date End Date Gael Everett MD [address] [place] [phone] PCP - General Internal Medicine 10/16/19
--- OUTSIDE RECORDS SUMMARY | 2025-06-02 10:41 | XMS_ITS | Clinical Summary ---
Author Organization [facility] Address [address] [place] [address] Phone Care Team Providers Care Experience Planning Strategist Name Role Phone Silke Mackenzie MD Primary Care Provider [phone] Allergies Active Allergy Reactions Criticality Noted Date Comments Azithromycin 10/25/2021 Sulfamethoxazole-Trimethoprim 2023 Benzyl Alcohol 10/25/2021 Benzyl Mcn-Itxatwqewicpjcav-P accharin Ciprofloxacin 10/20/2021 Prochlorperazine 05/30/2024 Iodine 10/25/2021 Iodine-131 02/15/2023 Meclizine 10/25/2021 Metronidazole Hives 10/20/2021 Nitrofurantoin Monohyd/M-Cryst 10/25 Sulfa (Sulfonamide Antibiotics) 10/25/2021 Sulfa Drugs Tetracyclines 10/20/2021 Trimethoprim 10/20/2021 Medications cholecalciferol (VITAMIN D-3) 1,250 mcg (50,000 unit) capsule Take by mouth. Activ e levothyroxine (SYNTHROID, LEVOTHROID) 50 mcg tablet Take 50 mcg by mouth daily. Active aspirin (ASPIR-81 ORAL) Take by mouth. Active alendronate (FOSAMAX) 70 mg tablet Take 1 Tablet by mouth every 7 days. 2 Active calcium carbonate-vitam in D 600 mg-10 mcg (400 unit) per tablet Take 1 tablet by mouth 1 (one) time each day in the morning. Active calcium carbonate-vit D3-min 600 mg-10 mcg (400 unit) tablet Take 1 tablet by mouth 1 (one) time each day in the morning. 4 Active fluticasone propionate (FLONASE) 50 mcg/actuation nasal spray Administer 2 sprays into each nostril 1 (one) time each day. 4 Active atorvastatin (LIPITOR) 80 mg tablet Take 1 tablet (80 mg total) by mouth at bedtime. 4 Active Active Problems Problem Noted Date Diagnosed Date Sebaceous cyst of labia 01/31/2022 Overview (04/02/2024): Last Assessment & Plan: Reason for excision: Encounter Diagnosis Name Primary? ? Sebaceous cyst of labia Yes The patient was consented for excision of vulvar sebaceous cyst. Risks reviewed including bleeding, infection, hematoma formation, and recurrence were discussed. She was placed in dorsal lithotomy position. The area of planned excision on right labia majora (measuring 1 cm) was prepped with NISHA and infiltrated with a total of 1 cc of 0.5% Marcaine. A 5mm vertical skin incision was made and the cyst contents were expressed. The cyst wall was grasped and sharply excised from underlying tissue. The defect was cauterized with silver nitrate and zinc oxide was applied. The patient tolerated the procedure well. Verbal and written instructions were provided. GERBER MORALES MD Surgical History Surgery Date Site/Laterality Comments SALPINGOOPHORECTOMY Right PROCEDURE: [place] LAPAROSCOPY W/RMVL ADNEXAL STRUCTURES BREAST BIOPSY Left PROCEDURE: [place] BIOPSY BREAST OPEN INCISIONAL Medical History Medical History Date Comments Hypothyroid DX:Hypothyroid Vitamin D deficiency DX:Vitamin D deficiency Osteoporosis DX:Osteoporosis Hyperlipidemia DX:Hyperlipidemi a Family History Medical History Relation Name Comments Coronary artery disease Father Ovarian cancer Maternal Grandmother not s ure if maternal or paternal Colon cancer Other maternal aunt Breast cancer Neg Hx Pancreatic cancer Neg Hx Uterine cancer Neg Hx Relation Name Status Comments Father Maternal Grandmother Other maternal aunt Alive Social History Tobacco Use Types Packs/Day Years Used Date Smoking Tobacco: Former Smokeless Tobacco: Never Alcohol Use Standard Drinks/Week Comments Not Currently 0 (1 standard drink = 0.6 oz pur e alcohol) Housing Instability Answer Date Recorde d Are you worried that in the next 2 months you may not have stable housing? No 06/09/2024 Food Access & Nutrition Answer Date Rec orded Do you have access to a vari ety of food including fruits and vegetables? Yes 06/09/2024 Access to Healthcare Answer Date Record ed Within the last 3 months, ho w many times did you visit the emergency department for your medical care? 0 06/09/2024 Health Literacy Answer Date Recorded How often do you need to hav e someone help you when you read instructions, pamphlets, or other written material from your doctor or pharmacy? Never 06/09/2024 Caregiver: How often do you need to have someone help you when you read instructions, pamphlets, or other written material from your doctor or pharmacy? Not on file 06/09/2024 Financial Risk Answer Date Recorded How hard is it for you to pa y for the very basics like food, housing, medical care, and air conditioning / heating? Not very hard 06/09/2024 Transportation Answer Date Recorded Has the lack of transportati on kept you from meetings, work, or from getting things needed for daily living? No Has the lack of transportati on kept you from medical appointments or from getting medications? No 06/09/2024 Social Isolation Answer Date Recorded How often do you feel lonely or isolated from th ose around you? Never 06/09/2024 Food Risk Answer Date Recorded Within the past 12 months we worried whether our food would run out before we got money to buy more. Never true 06/09/2024 Within the past 12 months th e food we bought just didn't last and we didn't have money to get more. Never true 06/09/2024 Dependent Care Answer Date Recorded Do you need help finding or paying for care for your loved ones. For example, child protection specialist or elderly care for an older adult? No 06/09/2024 Education Answer Date Recorded Do you think completing more education or training, like finishing a GED, going to college, or learning a trade, would be helpful for you? N/A 06/09/2024 Employment and Income Answer Date Recor ded During the last four weeks, have you been actively looking for work? No 06/09/2024 Living Situation Answer Date Recorded What is your living situation? Unrecognized valu e 06/09/2024 Comments No Sex and Gender Information Value Date Recorded Sex Assigned at Not on file Legal Sex Female 5:43 PM EST Gender Identity Not on file Sexual Orientation Not on file Occupation Industry Job Start Date Job End Date retired Not on file Not on file Not on file Obstetrics History Para Term AB IAB SAB Ectopic Multiple Livin g Live Births 1 1 1 1 Date Outcome GA Total Labor Labor/2nd/3rd Weight Sex Type Anes PTL Sade A1 A5 Name Clin 1980 Para F Vag-S pont Living Last Filed Vital Signs Vital Sign Reading Time Taken Comments Blood Pressure 126/78 06/16/2024 12:56 PM EST Pulse 102 06/16/2024 12:56 PM EST Temperature - - Respiratory Rate 18 06/16/2024 12:5 6 PM EST Oxygen Saturation - - Inhaled Oxygen Concentration - - Weight 69.8 kg (153 lb 12.8 oz) 024 12:56 PM EST Height 160 cm (5' 3 ) 06/16/2024 12:56 PM EST Body Mass Index 27.24 06/16/2024 12:56 PM EST Plan of Treatment Upcoming Encounters Date Type Department Care Team (Late st Contact Info) Description 06/18/2025 9:00 AM EST Office Visit [facility] [address] [place] [address] Morgan Lauren, [place] [address] [place] [address] Health Maintenance Due Date Last Done Comments Pneumococcal Vaccine: 50+ Years (1 of 1 - PCV) 2009 Medicare Annual Wellness Visit 06/03/2022 Osteoporosis Screening (Bone Density Screening) 06/03/2022 Breast Cancer Screening 11/16/2023 11/15/2021 Falls Risk Assessment 2024 Depression Screening 07/02/2024 06/09/2024 COVID-19 Vaccine (2024-2 6 season) 2025 08/09/2021 Influenza Vaccine (#1) 2025 , 06/09/2021, 04/16/2018 Social Influencers of Health Screening 06/09/2025 06/09/2024 Colorectal Cancer Screening: Colonoscopy 11/16/2026 11/16/2016 Cholesterol Screening (Lipid Panel) 05/28/2029 05/28/2024 DTaP,Tdap,and Td Vaccines (2 - Td or Tdap) 10/21/2031 10/20/2021 RSV Immunization Adult Patients (1 - 1-dose 75+ series) 2034 Zoster Vaccines Completed 12/05/2022, 09/05/2022 Hepatitis C Screening Completed 12/22/2022 HIB Vaccines Aged Out No longer eligi [...] on patient's age to complete this topic MMR Vaccines Aged Out No longer eligi ble based on patient's age to complete this topic Meningococcal ACWY Vaccine Aged Out N o longer eligible based on patient's age to complete this topic Meningococcal B Vaccine Aged Out No l onger eligible based on patient's age to complete this topic RSV Immunization Patients Under 20 months Aged Out No longer eligible b ased on patient's age to complete this topic Varicella Vaccines Aged Out No longer eligible based on patient's age to complete this topic Procedures Procedure Name Priority Date/Time Associated Diagnosis Comments EXTERNAL COLONOSCOPY REPORT Routine 11/16/2016 8:05 AM EDT from Last 3 Months or Most Recently Relevant to Health Maintenance Results * External Colonoscopy Report (11/16/2016 8:05 AM EDT) Anatomical Region Laterality Modality Endoscopy [facility] Provider GI~PROCEDURE ORDERABLES F inal Result from Last 3 Months or Most Recently Relevant to Health Maintenance Insurance [employer] MEDICARE Care Teams Experience Planning Strategist Relationship Specialty Start Date End Date Silke Mackenzie MD [address] [place] [address] PCP - General Internal Medicine 10/25/21
--- OUTSIDE RECORDS SUMMARY | 2025-06-02 10:41 | XMS_ITS | Encounter Summary ---
Author Organization [employer] Address [address] [facility] [address] [place] [address] Care Team Providers Care Online User Experience Strategist Name Role Phone Gael Everett MD Primary Care Prov ider Reason for Visit * Reason Onset Date Comments Lab Orders 03/12/2025 Encounter Details Date Type Department Care Team ([facility] Contact Info) Description 03/12/[address] [facility] [address] [place] [address] Gael Everett MD [address] [place] [address] Lab Orders Social History Tobacco Use Types Packs/Day Years [...] encounter Miscellaneous Notes * Telephone Encounter - Marbin Jose L - 03/12/2025 9:03 AM EDT Tc from pt calling in regards to telephone visit on 03/19. Pt is requesting a call back to clarify if she would need labs for the upcoming visit. If so she would like lab orders to be placed for her to have them done before the appt. Please contact pt at [phone]. documented in this encounter Plan of Treatment Not on file documented as of this encounter Visit Diagnoses Not on filedocumented in this encounter Additional Health Concerns Assessment Noted Time PHQ-9 Depression Total Score: 0 12/11/19 25 12:00 PM EDT documented as of this encounter Care Teams Online User Experience Strategist Relationship Specialty Start Date End Date Gael Everett MD [address] [place] [id number] PCP - General Internal Medicine 10/16/19 documented as of this encounter
--- OUTSIDE RECORDS SUMMARY | 2025-06-02 10:41 | XMS_ITS | Encounter Summary ---
Author Organization [employer] Address [address] [facility] 7 [place] [address] Care Team Providers Care Bisque Placer Name Role Phone Gael Everett MD Primary Care Prov ider Encounter Details Date Type Department Care Team ([facility] st Contact Info) Description 09/08/2022 Orders Only [facility] [address] [place], [place] [phone] Silke Mackenzie MD [address] [place] [address] Normocytic anemia (Primary Dx) Social History Tobacco Use Types Packs/Day Years Used Date Smoking Tobacco: Never Smokeless Tobacco: Never Comments Unknown Sex and Gender Information Value Date Recorded Sex Assigned at Female 05/01/2022 10:37 AM EDT Legal Sex Female 10:37 AM EDT Gender Identity Female 05/01/2022 10:37 AM EDT Sexual Orientation Straight 05/01/2022 10 :37 AM EDT COVID-19 Exposure Response Date Recorded In the last 10 days, have yo u been in contact with someone who was confirmed or suspected to have Coronavirus/COVID-19? No / Unsure 09/04/2022 3:03 PM EST documented as of this encounter Plan of Treatment Not on file documented as of this encounter Procedures Procedure Name Priority Date/Time Associated Diagnosis Comments IRON, TIBC AND FERRITIN PANEL Routine 09/14/2022 11:56 AM EDT Normocytic anemia RETICULOCYTE COUNT Routine 09/14/2022 11 :56 AM EDT Normocytic anemia documented in this encounter Results * Reticulocyte Count (09/14/2022 11:56 AM EDT) Reticulocyte Count, Automated 0.9 % [facility] Reticulocyte, Absolute 35,910 20,000 - 80,000 cells/uL [facility] Blood Venous blood specimen / Unknown 09/14/2022 11:56 AM EDT 09/14/2022 11:57 AM EDT Silke Mackenzie MD LAB BLOOD ORDERABLES Final Result Performing Organization Address City/[facility] Co de Phone Number [facility] [address] [place] [address], [place] [phone] [employer] [facility] [address] [place] [address] * Iron, TIBC And Ferritin Panel (09/14/2022 11:56 AM EDT) Pathologist [facility] [place] Iron, Total 82 45 - 160 mcg/dL [facility] Iron Binding Capacity 314 250 - 450 mcg/dL (calc) [facility] % Saturation 26 16 - 45 % (calc) [facility] Ferritin 134 16 - 288 ng/mL [facility] [place] [facility] Blood Venous blood specimen / Unknown 09/14/2022 11:56 AM EDT 09/14/2022 11:57 AM EDT us Silke Mackenzie MD LAB BLOOD ORDERABLES Final Result Performing Organization Address City/[facility]/ZIP Co de Phone Number [facility] [address] [place] [address], [place] [address] [employer] [facility] [address] [place] [phone] documented in this encounter Visit Diagnoses Diagnosis Normocytic anemia- Primary Unspecified anemia documented in this encounter Care Teams Bisque Placer Relationship Specialty Start Date End Date Gael Everett MD [address] [place] [phone] PCP - General Internal Medicine 10/16/19 documented as of this encounter
[2025-06-02 14:49] LABS: MANUAL DIFF FLAG NO
[2025-06-02 14:54] LABS: Hematocrit 36.1 % (37.0-47.0); Hemoglobin 11.4 g/dl (12.0-16.0); Imm Gran Abs Auto 0.01 X10*3/uL (0.00-0.03); Imm Gran Pct Auto 0.2 % (0.0-0.4); Lymphocytes Absolute Auto 2.2 X10*3/uL (1.2-4.9); Mean Corpuscular HGB Conc 31.6 g/dl (31.0-35.0); Mean Corpuscular Hemoglobin 28.4 pg (27.0-33.0); Mean Corpuscular Volume 89.8 fL (80.0-98.0); NRBC Abs Auto 0.000 X10*3/uL (0.0-0.012); NRBC Pct Auto 0.0 /100WBC (0.0-0.2); Platelet Count 224 X10*3/uL (160-400); Red Blood Count 4.02 X10*6/uL (4.20-5.50); White Blood Count 4.1 X10*3/uL (4.8-10.8)
[2025-06-02 15:21] LABS: Alanine Aminotransferase 15 U/L (0-31); Albumin Level 4.2 g/dL (3.5-5.0); Alkaline Phosphatase 60 U/L (39-117); Anion Gap 12 (12-20); Aspartate Amino Transferase 20 U/L (5-31); Blood Urea Nitrogen 11 mg/dL (9-16); Calcium 9.3 mg/dL (8.4-10.2); Carbon Dioxide 26 mmol/L (22-29); Chloride 106 mmol/L (96-108); Cholesterol 183 mg/dL (<200); Estimated Glomerular Filt Rate > 60; HDL Cholesterol 65 mg/dL (>40); Iron 114 mcg/dL (30-160); Percent Iron Saturation 41 % (15-50); Potassium 3.9 mmol/L (3.3-5.1); Sodium 140 mmol/L (135-145); Total Iron Binding Capacity 276 mcg/dL (228-428); Total Protein 6.9 g/dL (6.5-8.0); Triglycerides 129 mg/dL (<150); Unsaturated Iron Binding 162 ug/dL
[2025-06-02 15:42] LABS: Folate 8.7 ng/mL (> or = 4.0); Vitamin B12 386 pg/mL (200-900)
== END 2025-06-02 09:43 | disposition home or self-care (01) ==
LOC: HO.CHCLDS 09:42
PROVIDERS: Visit Provider Internal Medicine
DX: Z13.21 Encounter for screening for nutritional disorder (principal); E78.2 Mixed hyperlipidemia; E03.9 Hypothyroidism, unspecified; D51.8 Other vitamin B12 deficiency anemias
CPT/HCPCS: 36415; 80053; 80061; 82306; 82607; 82746; 83540; 84443; 85025